=== PATIENT | female | born 1960 | race Asian ===

== ENCOUNTER 2022-06-06 07:45 | Outpatient (CLI) | payer OTHER | END 2022-06-06 08:00 | disposition home or self-care (01) | LOC: LAB.N 07:45 | PROVIDERS: ATTEND Physician Assistant Medical | DX: N30.00 Acute cystitis without hematuria (principal) | CPT/HCPCS: 87086 ==

== ENCOUNTER 2023-06-14 14:27 | Outpatient (CLI) | payer OTHER ==
--- NOTE | 2023-06-15 09:13 | Mammography Report ---
BILATERAL DIGITAL SCREENING MAMMOGRAM 3D/2D: 06/14/2023 CLINICAL: Routine screening. Comparison is made to exam dated: 09/23/2021 mammogram - [facility]. There are scattered areas of fibroglandular density in both breasts (category b / 25%-50% glandular t issue). No significant masses, calcifications, or other findings are seen in either breast. There has been no significant interval change. IMPRESSION: NEGATIVE There is no mammographic evidence of malignancy. A 1 year screening mammogram is recommended. Based on the Tyrer Cuzick model (a risk assessment model) the patient's lifetime risk is 5.3% and her 10 year risk is 2.2%. According to the ACR, ACS, and NCCN guidelines, an annual breast MRI exam indira g with mammogram is recommended if the patient's lifetime risk is 20% or greater. This exam was interpreted at Station ID: [id number]. NOTE: For mammograms, a report in lay terms will be sent to the patient. Approximately 15% of breast malignancies will not be visualized mammographically. In the management of a palpable breast mass, a negative mammogram must not discourage biopsy of a clinically suspicious lesion. Electronically Signed By: Kale sharpe/velia:06/14/2023 15:52:51 letter sent: No_Letter ACR BI-RADS Category 1: Negative 3341F PARENCHYMAL PATTERN: (A) - The breast(s) demonstrate(s) scattered fibroglandular densities. BI-RADS CATEGORY: (1) - 1 RECOMMENDATION: (ANNUAL) - Recommend routine annual screening mammography. [id number] 1 year screening LATERALITY: (B)
== END 2023-06-14 14:28 | disposition home or self-care (01) ==
LOC: DI.N 14:27
PROVIDERS: ATTEND Physician Assistant
DX: Z12.31 Encounter for screening mammogram for malignant neoplasm of breast (principal); R92.323 Mammographic fibroglandular density, bilateral breasts

== ENCOUNTER 2023-09-29 09:53 | Outpatient (CLI) | payer OTHER ==
--- NOTE | 2023-09-29 10:26 | CT Report ---
PROCEDURE: Head WO INDICATIONS: HEADACHE TECHNIQUE: Noncontrast 4.5 mm thick angled axial sections acquired from the foramen magnum to the vertex. For r adiation dose reduction, the following was used: automated exposure control, adjustment of mA and/or kV according to patient size. COMPARISON: None. FINDINGS: Image quality: Diagnostic CSF spaces: Basal cisterns are patent. Lateral ventricles are symmetric. Volume: Generally maintained Brain: No acute hemorrhage. No gross loss of pinto-white differentiation. There is mineralization the basal ganglia incidentally noted. Craniofacial structures: Hypoplastic or postsurgical changes of the right mastoids. No significant pa ranasal sinus opacity Incidentally noted empty sella. IMPRESSION: No significant intracranial abnormality by CT. Incidentally noted empty sella. If there is high concern for parenchymal pathology, consider further evaluation with MRI. Reviewed by: Mansoor Zabala MD on 09/29/2023 10:25 AM PDT Approved by: Mansoor Zabala MD on 09/29/2023 10:25 AM PDT Station ID: [id number]
== END 2023-09-29 09:54 | disposition home or self-care (01) ==
LOC: DI 09:53
PROVIDERS: ATTEND Internal Medicine
DX: G44.301 Post-traumatic headache, unspecified, intractable (principal)

== ENCOUNTER 2023-10-04 08:00 | Outpatient (CLI) | payer OTHER | END 2023-10-04 23:59 | disposition home or self-care (01) | LOC: LAB.N 08:00 | PROVIDERS: ATTEND Physician Assistant Medical | DX: R30.0 Dysuria (principal) | CPT/HCPCS: 87086 ==